=== PATIENT | female | born 1955 | race Caucasian/White ===

== ENCOUNTER → 2016-04-01 | Outpatient (CLI) | payer BC ==
[~2016-04-01] MED LIST: ALBUAER2 INH; CIPR-255 PO; DPKEC500 PO; HYDR-5688 PO; METO1TAB54 PO; MONT1TAB3 PO; VNTHFA/IN INH
--- NOTE | 2016-04-02 12:39 | MAMMOGRAPHY REPORT ---
BILATERAL DIGITAL SCREENING MAMMOGRAM TOMOSYNTHESIS WITH CAD: 04/01/2016 CLINICAL HISTORY: Routine screening. Patient has no complaints. TECHNIQUE: Breast tomosynthesis in addition to standard 2D mammography was performed. Current study was also evaluated with a Computer Aided Detection (CAD) system. COMPARISON: Comparison is made to exams dated: 03/27/2015 mammogram, 03/22/2013 mammogram, 03/23/2014 mammogram, 07/26/2011 mammogram, 07/05/2010 mammogram - [facility], and 07/05/2008. BREAST COMPOSITION: There are scattered areas of fibroglandular density in both breasts. FINDINGS: There are a few stable benign-appearing calcifications in the breasts. No suspicious mass , architectural distortion or cluster of suspicious microcalcifications is seen. IMPRESSION: ACR BI-RADS CATEGORY 1: NEGATIVE There is no mammographic evidence of malignancy. A 1 year screening mammogram is recommended. The p atient will receive written notification of the results. Approximately 10% of breast cancers are not detected with mammography. A negative mammographic repor t should not delay biopsy if a clinically suggestive mass is present. Kristen Rivas M.D. ay/:04/01/2016 16:27:44 Criminal Profiler: Mariluz MOORE(Jaquelin)(Milena), [facility] letter sent: Normal 1/2 BI-RADS Code: ACR BI-RADS Category 1: Negative
== END | disposition home or self-care (01) ==
LOC: C.MAMM 10:14
PROVIDERS: ATTEND Obstetrics & Gynecology
DX: Z12.31 Encounter for screening mammogram for malignant neoplasm of breast (principal)

== ENCOUNTER → 2016-04-17 | Outpatient (CLI) | payer BC ==
--- NOTE | 2016-04-17 13:07 | DIAGNOSTIC IMAGING REPORT ---
SINUS CT CT DOSE: 269.19 mGycm HISTORY: CHRONIC SINUSITIS TECHNIQUE: Multiaxial CT images of the paranasal sinuses were performed and reformatted in the coronal plane without the use of contrast. COMPARISON: Head CT 08/28/2007. FINDINGS: The frontal sinuses and mastoid air cells are clear. Polypoid thickening and opacification of the inferior bilateral ethmoid air cells. There is mild mucosal thickening of the bilateral sphenoid sinuses and maxillary sinuses. No fluid levels within the paranasal sinuses. The nasal septum is essentially midline. The lamina papyracea and orbital floors are intact. Stable 2 cm lucent lesion within the left sphenoid wing. The long-term stability favors a benign lesion. Prior bilateral uncinectomies and partial ethmoidectomies. There is partial opacification of the bilateral maxillary ostia. The left cribriform plate is approximately 2 mm inferior to the right cribriform plate. The ethmoid roofs are essentially symmetric. The visualized brain parenchyma and orbits are unremarkable. IMPRESSION: 1. Postoperative changes within the sinuses as described above. 2. Chronic polypoid thickening and partial opacification of the inferior residual bilateral ethmoid air cells and mid aspect of the nasal cavity. This results in partial opacification of the bilateral maxillary ostia. 3. No fluid levels within the paranasal sinuses. 4. Stable 2 cm lucent lesion within the left sphenoid wing. The long-term stability favors a benign lesion. Electronically signed by: Herberth Bailey M.D. 04/17/2016 1:05 PM Dictated Date/Time: 04/17/2016 12:57 PM
== END | disposition home or self-care (01) ==
LOC: C.CTS 12:38
PROVIDERS: ATTEND Otolaryngology
DX: J32.9 Chronic sinusitis, unspecified (principal); J34.89 Other specified disorders of nose and nasal sinuses; Z98.890 Other specified postprocedural states

== ENCOUNTER → 2016-04-24 | Outpatient (CLI) | payer BC | END | disposition home or self-care (01) | LOC: C.CPL 11:43 | PROVIDERS: ATTEND Otolaryngology | DX: Z01.810 Encounter for preprocedural cardiovascular examination (principal) ==

== ENCOUNTER → 2016-05-09 | Day surgery (SDC) | payer BC ==
[2016-04-30 14:35] VITALS: Ht 160 cm; Wt 74.1 kg
--- NOTE | 2016-05-08 09:53 | History and Physical: Surg Cnt ---
History & Physical Date May 08, 2016. Chief Complaint sinus infections History of Present Illness The patient is a 60 year old female with complaints of chronic sinusitis after several sinus surgeries Additional History Hepatic Disease: No Endocrine Disorder: No Kidney Disease: No Hypertension: No Heart Disease: No Bleeding Tendencies: No Infectious Diseases: No Allergies Coded Allergies: Quinolones (Verified Allergy, Severe, ANAPHYLAXIS BUT CAN TAKE AVELOX W/O RXN, 04/30/16) Cefuroxime (Verified Allergy, Mild, RASH, 04/30/16) Sulfa Antibiotics (Unverified Allergy, Unknown, HIVES AND SOB, 04/30/16) Trovafloxacin (Unverified Allergy, Unknown, HIVES AND SOB, 04/30/16) Home Medications Scheduled PRN Albuterol (Ventolin), 2 PUFFS INH Q4H PRN for SOB/Wheezing Physical Examination Skin: warm/dry, no rash Eyes: normal inspection, EOMI, sclerae normal ENT: normal ENT inspection, pharynx normal Head: normocephalic, atraumatic Neck: supple, no adenopathy, trachea midline Respiratory/Chest: lungs clear, normal breath sounds, no respiratory distress Cardiovascular: regular rate, rhythm, no edema, no murmur Abdomen / GI: normal bowel sounds, non tender Back: normal inspection Extremities: normal inspection, normal range of motion Neurologic/Psych: no motor/sensory deficits, alert, normal reflexes, oriented x 3 Diagnosis chronic sinusitis Plan of Treatment endoscopic sinus surgery
[~2016-05-09] VITALS: Ht 160 cm; Wt 74.1 kg
[~2016-05-09] MED LIST changes: +ATROPINE SULFATE 0.1 MG/ML 5ML SYR IV PRN; -CIPR-255 PO; +CLINDAMYCIN PHOS 150 MG/ML 2 ML VIAL IV SCH; +DEXAMETHASONE SOD INJ 4 MG/ML VIAL ONE; -DPKEC500 PO; +EpHEDrine SULFATE 50MG/5ML SYR ONE; +EpHEDrine SULFATE INJ 50 MG/ML AMP IV PRN; +EpINEphrine INJ 1MG/ML AMP 1 MG/ML AMP ONE; +FENTANYL CITRATE INJ 50 MCG/1 ML 2 ML VIAL IV PRN; +FENTANYL CITRATE INJ 50 MCG/1 ML 2 ML VIAL ONE; +FLUMAZENIL 0.1 MG/1 ML 10 ML VIAL IV PRN; +LABETALOL HCL IV 5 MG/ML 20ML IV PRN; +LACTATED RINGER'S 1000ML 1,000 ML IV SCH; +LIDO 2%/EPINEPHRINE 1:100000 20 ML VIAL INFIL ONE; +LIDOCAINE 4% MPF SOAK 5 ML = 1 DOSE TOP ONE; +LIDOCAINE HCL 2% 2 ML VIAL (20MG/ML) ONE; -METO1TAB54 PO; +MIDAZOLAM HCL 1 MG/ML 2ML VIAL ONE; -MONT1TAB3 PO; +NALOXONE HCL 0.4 MG/1 ML VIAL/CARP IV PRN; +ONDANSETRON INJ 2 MG/ML 2 ML VIAL IV PRN; +ONDANSETRON INJ 2 MG/ML 2 ML VIAL ONE; +OXYCODONE/ACETAMINOPHEN 5-325 TAB PO PRN; +OXYMETAZOLINE HCL 0.05% NA SPR 15 ML BTL SCH; +PROMETHAZINE HCL INJ 12.5 MG in SODIUM CHLORIDE 0.9% 50ML 50 ML IV PRN; +PROMETHAZINE HCL INJ 25 MG/ML 1 ML VIAL ONE; +PROPOFOL IV EMULSION 10 MG/ML 20 ML VIAL IV ONE; +SODIUM CHLORIDE 0.9% 1000ML 1,000 ML IV SCH
--- NOTE | 2016-05-09 08:43 | History & Physical Bridge Note ---
H&P Re-Evaluation Bridge Note: I have examined the patient, reviewed the History & Physical and in the interval since the performance of the History & Physical I have noted the following changes of clinical significance: No changes noted
--- NOTE | 2016-05-09 09:11 | Discharge Instructions-SurgCtr ---
Discharge Instructions Visit Reason for Visit: Chronic Sinusitis Discharge Discharge Diagnosis / Problem: same Discharge Goals Goal(s): Improve disease control Activity Recommendations Activity Limitations: resume your previous activity Anesthesia . Post Anesthesia Instructions: If you have had General Anesthesia or IV Sedation: * Do not drive today. * Resume driving when surgeon permits. * Do not make important decisions or sign legal documents today. * Call surgeon for: 1. Temperature elevations greater than 101 degrees F. 2. Uncontrollable pain. 3. Excessive bleeding. 4. Persistent nausea and vomiting. 5. Medication intolerance (nausea, vomiting or rash). * For nausea and vomiting use only clear liquids such as: tea, soda, bouillon until nausea subsides, then gradually increase diet as tolerated. * If you have any concerns or questions, call your surgeon's office. If physician is unavailable and it is an emergency, call 911 or go to the nearest emergency room. . Instructions / Follow-Up Instructions / Follow-Up ACTIVITY RECOMMENDATIONS: * Being up and around is good, but no strenuous activity, heavy lifting or physical exertion for one week. * Keep your head elevated 30 degrees when lying down or sleeping. * Do not blow your nose for 48 hours, sniff back instead. * Avoid hot showers. OVER THE COUNTER MEDICATIONS: * You may use Tylenol * Avoid aspirin or aspirin containing products, e.g. as they may increase bleeding. SPECIAL CARE INSTRUCTIONS: * Expect to have bloody drainage from your nose and/or down your throat for one to three days. Change drip pad as needed. * Begin irrigating your nose with saline solution today, at least six to ten times per day and sniff back to help remove old clots or crust. * You may experience nasal and facial congestion, pain and pressure, this is normal. * Please call with any significant and/or progressive pain, redness, swelling around the eyes, visual changes, fever of 101.5 degrees F, active bleeding or any problems or concerns. * If active bleeding occurs, spray the nose three times at one minute intervals with Afrin spray and call or cell phone: . If unable to reach the doctor, go to the nearest Emergency Department. Special Diet: * Avoid extremely hot fluids. FOLLOW UP VISIT: Follow-up Visit with Dr. Traylor If not already scheduled, please call to schedule. Diet Recommendations Home Diet: no limitations Pending Studies Studies pending at discharge: no Medical Emergencies . Who to Call and When: Medical Emergencies: If at any time you feel your situation is an emergency, please call 911 immediately. . Non-Emergent Contact Non-Emergency issues call your: Primary Care Provider . . "Provider Documentation" section prepared by Roxanne Traylor. [place] Drug Monitoring Program Search Results: no issues identified
--- NOTE | 2016-05-09 11:06 | OPERATIVE REPORT ---
DATE OF OPERATION: 05/09/2016 PREOPERATIVE DIAGNOSIS: Chronic sinusitis and polyposis. POSTOPERATIVE DIAGNOSIS: Same. PROCEDURE: Right and left frontal, right and left sphenoid, right and left total ethmoid and right and left maxillary sinus antrostomies. SURGEON: Dr. Traylor. ANESTHESIA: General endotracheal. COMPLICATIONS: None. BLOOD LOSS: 50 mL. HISTORY OF PRESENT ILLNESS: A 60-year-old lady with significant recurrent nasal polyposis, chronic sinusitis, difficulty breathing through her nose. She previously had [address] Saba and [address] Walter but continues to have chronic sinusitis and polyps. OPERATION AND FINDINGS: PROCEDURE: The patient brought to operating room and placed in supine position. General endotracheal anesthesia was induced, prepped, draped in usual sterile manner. Nose decongested using cottonoids with topical solution of 4 mL of 4% Xylocaine with 1 mL of epinephrine. Injection of 2% Xylocaine with 1:100,000 strength epinephrine was also used. [employer] device calibrated and used for the entire procedure. The left nasofrontal duct was cannulated with guidewire and dilated using the 6 mm balloon. The guidewire was left in place as a marker. Frontal sinusotomy was performed with the shaver coupled with the BrainLab device shaving out the anterior wall of the agger nasi cell which was still remaining and then the posterior residual wall of the agger nasi cell along with polyps up to the nasofrontal duct, widely opening up the nasofrontal duct but leaving the mucosa there intact. At this point, total ethmoidectomy was performed removing all the anterior and posterior ethmoidal air sessile polyps, finding the sphenoid ostia to be covered with polyps opening up the sphenoid ostia using the shaver coupled with BrainLAB device opening up the sphenoid to the previously shaved ostia and then finding the maxillary sinus to be filled with polyps and also having a missed ostia syndrome, opening up the maxillary ostia by using the seeker to find the missed ostia and then using the shaver to connect the missed primary ostia with the wide antrostomy opening posteriorly. There was polypoid mucosa inside the maxillary sinus which was left in place. In this manner, the frontal, sphenoid, total ethmoid and maxillary sinus antrostomies were completed and a Propel stent was placed. The opposite side frontal, total ethmoid, maxillary and sphenoid sinusotomies were performed in a similar manner again removing multiple polyps. The patient tolerated the procedure well and was taken to recovery area in satisfactory condition. I attest to the content of the Intraoperative Record and any orders documented therein. Any exceptio ns are noted below.
[2016-05-09 11:30] VITALS: TEMP 36.2
--- NOTE | 2016-05-09 11:33 | Anesthesia Progress Nt - [facility] ---
Anesthesia Post Op Note Date & Time May 09, 2016 at 11:33 Vital Signs Pain Intensity: 0 Vital Signs Past 12 Hours Date Time Temp Pulse Resp B/P Pulse Ox O2 Delivery O2 Flow Rate FiO2 05/09/16 11:13 123/81 05/09/16 11:10 75 9 95 05/09/16 11:10 77 9 05/09/16 11:09 79 9 05/09/16 11:09 78 9 94 05/09/16 11:08 122/83 05/09/16 11:06 36.7 95 Room Air 05/09/16 11:04 76 10 95 05/09/16 11:04 76 10 05/09/16 11:03 138/83 05/09/16 10:59 82 8 05/09/16 10:59 82 8 94 05/09/16 10:58 77 12 132/83 94 05/09/16 10:58 77 12 05/09/16 10:53 86 20 136/85 100 05/09/16 10:53 86 20 05/09/16 10:48 79 9 05/09/16 10:48 79 9 134/85 100 05/09/16 10:43 82 13 135/82 100 05/09/16 10:43 82 13 05/09/16 10:38 80 18 138/64 100 05/09/16 10:38 81 18 05/09/16 10:33 79 19 05/09/16 10:33 79 19 129/83 100 05/09/16 10:33 36.4 80 12 133/84 100 Humidified Oxygen 6 Mask 05/09/16 07:58 36.7 80 16 147/93 95 Room Air Notes Mental Status: alert / awake / arousable, participated in evaluation Pt Amnestic to Procedure: Yes Nausea / Vomiting: adequately controlled Pain: adequately controlled Airway Patency, RR, SpO2: stable & adequate BP & HR: stable & adequate Hydration State: stable & adequate Anesthetic Complications: no major complications apparent
--- NOTE | 2016-05-09 12:14 | Discharge Instructions-SurgCtr ---
Discharge Instructions Visit Reason for Visit: Chronic Sinusitis Discharge Discharge Diagnosis / Problem: same Discharge Goals Goal(s): Improve function Activity Recommendations Activity Limitations: resume your previous activity Lifting Limitations: no more than 5 pounds, gradually increase as tolerated Exercise/Sports Limitations: as tolerated excuse from work until next Friday, return to work next Anesthesia . Post Anesthesia Instructions: If you have had General Anesthesia or IV Sedation: * Do not drive today. * Resume driving when surgeon permits. * Do not make important decisions or sign legal documents today. * Call surgeon for: 1. Temperature elevations greater than 101 degrees F. 2. Uncontrollable pain. 3. Excessive bleeding. 4. Persistent nausea and vomiting. 5. Medication intolerance (nausea, vomiting or rash). * For nausea and vomiting use only clear liquids such as: tea, soda, bouillon until nausea subsides, then gradually increase diet as tolerated. * If you have any concerns or questions, call your surgeon's office. If physician is unavailable and it is an emergency, call 911 or go to the nearest emergency room. . Instructions / Follow-Up Instructions / Follow-Up ACTIVITY RECOMMENDATIONS: * Being up and around is good, but no strenuous activity, heavy lifting or physical exertion for one week. * Keep your head elevated 30 degrees when lying down or sleeping. * Do not blow your nose for 48 hours, sniff back instead. * Avoid hot showers. OVER THE COUNTER MEDICATIONS: * You may use Tylenol * Avoid aspirin or aspirin containing products, e.g. as they may increase bleeding. SPECIAL CARE INSTRUCTIONS: * Expect to have bloody drainage from your nose and/or down your throat for one to three days. Change drip pad as needed. * Begin irrigating your nose with saline solution today, at least six to ten times per day and sniff back to help remove old clots or crust. * You may experience nasal and facial congestion, pain and pressure, this is normal. * Please call with any significant and/or progressive pain, redness, swelling around the eyes, visual changes, fever of 101.5 degrees F, active bleeding or any problems or concerns. * If active bleeding occurs, spray the nose three times at one minute intervals with Afrin spray and call or cell phone: . If unable to reach the doctor, go to the nearest Emergency Department. Special Diet: * Avoid extremely hot fluids. FOLLOW UP VISIT: Follow-up Visit with Dr. Traylor If not already scheduled, please call to schedule. Diet Recommendations Home Diet: no limitations Procedures Procedures Performed: Endoscopic Sinus Surgery, Right & Left Frontal, Right & Left Maxillary, Right & Left Sphenoid, Right & Left Total Ethmoids, With Brainlab Navigation Pending Studies Studies pending at discharge: no Medical Emergencies . Who to Call and When: Medical Emergencies: If at any time you feel your situation is an emergency, please call 911 immediately. . Non-Emergent Contact Non-Emergency issues call your: Primary Care Provider . . "Provider Documentation" section prepared by Roxanne Traylor. [place] Drug Monitoring Program Search Results: no issues identified
[2016-05-09 12:20] VITALS: BP 139/90; PULSE 69; O2SAT 98
== END | disposition home or self-care (01) ==
LOC: X.SURG 07:46
PROVIDERS: ATTEND Otolaryngology
DX: J32.9 Chronic sinusitis, unspecified (principal); J33.9 Nasal polyp, unspecified; Z88.1 Allergy status to other antibiotic agents; Z88.2 Allergy status to sulfonamides; Z88.8 Allergy status to other drugs, medicaments and biological substances

== ENCOUNTER 2016-05-17 10:06 | Emergency (ER) | payer BC ==
[~2016-05-17] VITALS: Ht 160 cm; Wt 73.2 kg
[~2016-05-17 10:06] MED LIST changes: -ATROPINE SULFATE 0.1 MG/ML 5ML SYR IV PRN; -CLINDAMYCIN PHOS 150 MG/ML 2 ML VIAL IV SCH; -DEXAMETHASONE SOD INJ 4 MG/ML VIAL ONE; -EpHEDrine SULFATE 50MG/5ML SYR ONE; -EpHEDrine SULFATE INJ 50 MG/ML AMP IV PRN; -EpINEphrine INJ 1MG/ML AMP 1 MG/ML AMP ONE; -FENTANYL CITRATE INJ 50 MCG/1 ML 2 ML VIAL IV PRN; -FENTANYL CITRATE INJ 50 MCG/1 ML 2 ML VIAL ONE; -FLUMAZENIL 0.1 MG/1 ML 10 ML VIAL IV PRN; -LABETALOL HCL IV 5 MG/ML 20ML IV PRN; -LACTATED RINGER'S 1000ML 1,000 ML IV SCH; -LIDO 2%/EPINEPHRINE 1:100000 20 ML VIAL INFIL ONE; -LIDOCAINE 4% MPF SOAK 5 ML = 1 DOSE TOP ONE; -LIDOCAINE HCL 2% 2 ML VIAL (20MG/ML) ONE; -MIDAZOLAM HCL 1 MG/ML 2ML VIAL ONE; -NALOXONE HCL 0.4 MG/1 ML VIAL/CARP IV PRN; -ONDANSETRON INJ 2 MG/ML 2 ML VIAL IV PRN; -ONDANSETRON INJ 2 MG/ML 2 ML VIAL ONE; -OXYCODONE/ACETAMINOPHEN 5-325 TAB PO PRN; -OXYMETAZOLINE HCL 0.05% NA SPR 15 ML BTL SCH; -PROMETHAZINE HCL INJ 12.5 MG in SODIUM CHLORIDE 0.9% 50ML 50 ML IV PRN; -PROMETHAZINE HCL INJ 25 MG/ML 1 ML VIAL ONE; -PROPOFOL IV EMULSION 10 MG/ML 20 ML VIAL IV ONE; -SODIUM CHLORIDE 0.9% 1000ML 1,000 ML IV SCH; -VNTHFA/IN INH
[2016-05-17 10:11] VITALS: TEMP 36.5; Ht 160 cm; Wt 73.2 kg
[2016-05-17] MEDS ORDERED: PROCHLORPERAZINE 5 MG/ML 2 ML VIAL IV STA (11:05)
[2016-05-17] MEDS ORDERED: SODIUM CHLORIDE 0.9% 1000ML 1,000 ML IV STA (11:05)
[2016-05-17] MEDS ORDERED: DiphenhydrAMINE HCL 50 MG/ML VIAL IV STA (11:05)
[2016-05-17] MEDS ORDERED: KETOROLAC TROMETHAMINE 30 MG/ML VIAL IV STA (11:05)
[2016-05-17 11:12] LABS: BASO % 0.6 %; BASO ABS # 0.04 K/uL (0-0.2); COMPLETE YES; EOS % 4.4 %; HEMATOCRIT 40.2 % (37-47); LYMPH % 29.1 %; LYMPH ABS # 1.92 K/uL (1.2-3.4); MEAN CELL VOLUME 87.2 fL (80-100); MEAN CORPUSCULAR HEMOGLOBIN 30.6 pg (25-34); MEAN CORPUSCULAR HGB CONC 35.1 g/dl (32-36); MEAN PLATELET VOLUME 9.7 fL (7.4-10.4); MONO % 5.2 %; NEUT % 60.7 %; PLATELET COUNT 322 K/uL (130-400); RED BLOOD COUNT 4.61 M/uL (4.2-5.4)
--- NOTE | 2016-05-17 11:14 | EMERGENCY ROOM VISIT NOTE ---
History Report prepared by Lonnie: Maricarmen Shah Under the Supervision of: Dr. Frankie Estes M.D. First contact with patient: 10:50 Chief Complaint: HYPERTENSION Stated Complaint: HIGH BP History of Present Illness The patient is a 60 year old female who presents to the Emergency Room with complaints of a persistent headache that began prior to arrival. She currently rates her discomfort as an 8/10 in severity. The patient states that she had sinus surgery on Friday and states that Dr. Traylor noticed a blood clot and tried to remove the clot. She states that the stent in her sinus moved, so they did not remove the clot. The patient states that she was instructed to return to Dr. Traylor's office next week for further evaluation. She states that she is still irrigating her sinuses. Today she notes the headache and describes it as a throbbing pain. She additionally associates neck pain, right arm numbness, nausea, and an increase in her blood pressure. The patient denies ever having pain like this in the past. Source of History: patient Onset: prior to arrival Position: head Symptom Intensity: 8/10 Quality: other (throbbing) Timing: other (persistent) Associated Symptoms: + nausea, + neck pain, + numbness (right arm) Note: Associated Symptoms: increase in blood pressure. Review of Systems See HPI for pertinent positives & negatives. A total of 10 systems reviewed and were otherwise negative. Past Medical & Surgical Medical Problems: (1) Asthma Surgical Problems: (1) H/O sinus surgery Family History Diabetes mellitus Social History Smoking Status: Never Smoker Alcohol Use: none Drug Use: none Marital Status: Occupation Status: employed Current/Historical Medications Scheduled Albuterol Hfa (Ventolin Hfa), 2-4 PUFFS INH Q6H Scheduled PRN Hydrocodone/Acetaminophen 5MG/325MG ([place] 5MG/325MG), 2 TABLETS PO Q4 PRN for Pain Allergies Coded Allergies: Quinolones (Verified Allergy, Severe, ANAPHYLAXIS BUT CAN TAKE AVELOX W/O RXN, 05/17/16) Cefuroxime (Verified Allergy, Mild, RASH, 05/17/16) Sulfa Antibiotics (Verified Allergy, Unknown, HIVES AND SOB, 05/17/16) Trovafloxacin (Verified Allergy, Unknown, HIVES AND SOB, 05/17/16) Physical Exam Vital Signs Date Time Temp Pulse Resp B/P Pulse Ox O2 Delivery O2 Flow Rate FiO2 05/17/16 14:03 60 16 135/80 96 05/17/16 13:40 67 16 147/84 97 Room Air 05/17/16 12:41 64 16 146/86 94 Room Air 05/17/16 11:26 82 16 104/92 96 Room Air 05/17/16 11:24 97 Room Air 05/17/16 10:11 36.5 76 18 170/106 99 Room Air Physical Exam GENERAL: Patient is a healthy-appearing well-nourished HEAD: Normocephalic atraumatic EYES: Ocular movements intact pupils equal and react to light OROPHARYNX mucous membranes are moist no exudates present no erythema or edema present NECK: No evidence of meningitis or encephalitis on exam. Supple no nuchal rigidity CHEST: Good equal expansion LUNGS: Clear and equal to auscultation CARDIAC: Normal S1 and S2 ABDOMEN: Soft nontender no guarding BACK: No CVA tenderness EXTREMITIES: No pain upon palpation normal muscle strength in all groups no clubbing cyanosis or edema NEURO: Patient is following commands is answering questions appropriately. Alert and oriented x3 Cranial Nerves 2-12 grossly intact Medical Decision & Procedures ER Provider Diagnostic Interpretation: CT results as stated below per my review and radiologist interpretation: CT SINUSES-MAXILLOFACIAL W/O CLINICAL HISTORY: Severe headache. History of sinus surgery. COMPARISON STUDY: 04/17/2016 TECHNIQUE: CT scan of the paranasal sinuses was performed in the axial plane. Coronal reconstructed images were obtained and reviewed. CT DOSE: 305.90 mGycm FINDINGS: There is near complete opacification of the left maxillary sinus. There is moderate mucosal thickening within the right maxillary sinus. 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 There is sphenoid sinus mucosal thickening. Frontal sinuses are clear. The mastoid sinuses are well aerated. There are postsurgical changes of functional endoscopic surgery. The created nasomaxillary apertures appear patent. The surgically created sphenoethmoidal recesses are patent. The surgically created frontal recesses are patent. There is supraorbital pneumatization above the anterior ethmoidal notches bilaterally IMPRESSION: Postsurgical changes. Near complete opacification of the left maxilla sinus and moderate mucosal thickening within the right maxillary sinus. Electronically signed by: Zi Moreno M.D. 05/17/2016 12:16 PM Dictated Date/Time: 05/17/2016 12:[address] HEAD WITHOUT CONTRAST (CT) CLINICAL HISTORY: Severe headache COMPARISON STUDY: 08/28/2007 TECHNIQUE: Axial CT of the brain is performed from the vertex to the skull base. IV contrast was not administered for this examination. CT DOSE: 823.94 mGycm FINDINGS: No intra or extra-axial mass lesions are visualized. There is no CT evidence of acute cortical infarction. There is no evidence of midline shift. There is no acute hemorrhage. No calvarial fractures are visualized. There are minor white matter hypodensities likely on a small vessel basis. There is no evidence of pathologic ventricular dilatation. There are postsurgical changes present. There is complete opacification of the left maxillary sinus. There is moderate mucosal thickening within the right maxillary sinus. There is sphenoid sinus mucosal thickening. There are postsurgical changes of a prior partial ethmoidectomy. IMPRESSION: 1. Inflammatory changes within the paranasal sinuses 2. No acute intracranial findings Electronically signed by: Zi Moreno M.D. 05/17/2016 12:03 PM Dictated Date/Time: 05/17/2016 12:02 PM Laboratory Results 05/17/16 10:24 Red Blood Count 4.61, Mean Corpuscular Volume 87.2, Mean Corpuscular Hemoglobin 30.6, Mean Corpuscular Hemoglobin Concent 35.1, Mean Platelet Volume 9.7, Neutrophils (%) (Auto) 60.7, Lymphocytes (%) (Auto) 29.1, Monocytes (%) (Auto) 5.2, Eosinophils (%) (Auto) 4.4, Basophils (%) (Auto) 0.6, Neutrophils # (Auto) 4.01, Lymphocytes # (Auto) 1.92, Monocytes # (Auto) 0.34, Eosinophils # (Auto) 0.29, Basophils # (Auto) 0.04 05/17/16 10:24 Test 05/17/16 10:24 05/17/16 11:20 White Blood Count 6.60 K/uL (4.8-10.8) Red Blood Count 4.61 M/uL (4.2-5.4) Hemoglobin 14.1 g/dL (12.0-16.0) Hematocrit 40.2 % (37-47) Mean Corpuscular Volume 87.2 fL (80-100) Mean Corpuscular Hemoglobin 30.6 pg (25-34) Mean Corpuscular Hemoglobin Concent 35.1 g/dl (32-36) Platelet Count 322 K/uL (130-400) Mean Platelet Volume 9.7 fL (7.4-10.4) Neutrophils (%) (Auto) 60.7 % Lymphocytes (%) (Auto) 29.1 % Monocytes (%) (Auto) 5.2 % Eosinophils (%) (Auto) 4.4 % Basophils (%) (Auto) 0.6 % Neutrophils # (Auto) 4.01 K/uL (1.4-6.5) Lymphocytes # (Auto) 1.92 K/uL (1.2-3.4) Monocytes # (Auto) 0.34 K/uL (0.11-0.59) Eosinophils # (Auto) 0.29 K/uL (0-0.5) Basophils # (Auto) 0.04 K/uL (0-0.2) RDW Standard Deviation 41.1 fL (36.4-46.3) RDW Coefficient of Variation 12.8 % (11.5-14.5) Immature Granulocyte % (Auto) 0.0 % Immature Granulocyte # (Auto) 0.00 K/uL (0.00-0.02) Anion Gap 8.0 mmol/L (3-11) Est Creatinine Clear Calc Drug Dose 85.4 ml/min Estimated GFR () 111.0 Estimated GFR (Non- 95.7 BUN/Creatinine Ratio 24.3 (10-20) Calcium Level 9.9 mg/dl (8.5-10.1) Thyroid Stimulating Hormone (TSH) 1.500 uIu/ml (0.300-4.500) Influenza Type A (RT-PCR) Neg for Influ A (NEG) Influenza Type A Antigen Neg for Influ A (NEG) Influenza Type B Antigen Neg for Influ B (NEG) Influenza Type B (RT-PCR) Neg for Influ B (NEG) Medications Administered Medications (Trade) Dose Ordered Sig/Mary Route Start Time Stop Time Status Last Admin Dose Admin Sodium Chloride (Nss 1000ml) 1,000 ml @ 999 mls/hr Q1H1M STAT IV 05/17/16 11:05 05/17/16 12:05 DC 05/17/16 11:19 999 MLS/HR Ketorolac Tromethamine (Toradol Inj) 30 mg NOW STAT IV 05/17/16 11:05 05/17/16 11:07 DC 05/17/16 11:21 30 MG Prochlorperazine Edisylate (Compazine Inj) 10 mg NOW STAT IV 05/17/16 11:05 05/17/16 11:07 DC 05/17/16 11:21 10 MG Diphenhydramine HCl (Benadryl Inj) 50 mg NOW STAT IV 05/17/16 11:05 05/17/16 11:07 DC 05/17/16 11:22 50 MG ECG Indication: other (hypertension) Rate (beats per minute): 73 Rhythm: normal sinus Findings: no acute ischemic change, no ectopy ED Course 1052: Past medical records reviewed. The patient was evaluated in room A12B. A complete history and physical examination was performed. 1105: Ordered Benadryl Inj 50 mg IV, Compazine Inj 10 mg IV, Toradol Inj 30 mg IV, Sodium Chloride 1000 ml @ 999 mls/hr IV. 1234: I discussed the patients case with Dr. Traylor, ENT. He is going to come see the patient. 1255: Dr. Traylor arrived in the emergency department. He states that he will tell the patient that she can follow up this week in the office. 1330: I reevaluated the patient and she is doing well. I discussed the exam findings with her and I discussed the treatment plan. She verbalized complete understanding and agreement. She is ready to go home. Medical Decision Differential diagnosis: Etiologies such as migraine headache, meningitis, sinusitis, CO exposure, ICH, SAH, infection, tumor, headache, sinus thrombosis, arterial dissection, as well as others were entertained. This is a 61-year-old female who presents emergency department complaining of headache along with multiple general other complaints. The patient has no evidence of meningitis encephalitis on examination. In addition she does not have an elevation in her white blood count has a normal renal profile normal liver profile. Based on the patient's complaint she was sent for CAT scan of the head as well as maxillofacial area. This did not show any evidence of acute process. The patient was also independently evaluated by Dr. Aceves who agreed that the patient can be safely discharged home for follow-up in the office. An IV was established, the patient given normal saline bolus, Compazine , Benadryl. Repeat examination revealed improvement patient's symptoms. Consults Time Called: 1231 Consulting Physician: Dr. Traylor, ENT Returned Call: 1234 I discussed the patients case with Dr. Traylor, ENT. He is going to come see the patient. Impression Primary Impression: Sinusitis Scribe Attestation The scribe's documentation has been prepared under my direction and personally reviewed by me in its entirety. I confirm that the note above accurately reflects all work, treatment, procedures, and medical decision making performed by me. Departure Information Dispostion Home / Self-Care Referrals Edin Merlos M.D. (PCP) Forms HOME CARE DOCUMENTATION FORM, IMPORTANT VISIT INFORMATION, WORK / SCHOOL INSTRUCTIONS Patient Instructions Headaches Sinus, My [facility], Sinus Probs, Sinuses Additional Instructions Follow up with DR Traylor's office You have been examined and treated today on an emergency basis only. This is not a substitute for, or an effort to provide, complete comprehensive medical care. It is impossible to recognize and treat all injuries or illnesses in a single emergency department visit. It is therefore important that you follow up closely with Dr Merlos. Call as soon as possible for an appointment. Thank you for your time and consideration. I look forward to speaking with you again soon. Please don't hesitate to call us if you have any questions. Problem Qualifiers Primary Impression: Sinusitis Sinusitis location: frontal Chronicity: subacute Qualified Codes: J01.10 - Acute frontal sinusitis, unspecified
[2016-05-17 11:19] LABS: BUN/CREATININE RATIO 24.3 (10-20); CALCIUM 9.9 mg/dl (8.5-10.1); CREATININE 0.68 mg/dl (0.60-1.20); POTASSIUM 3.9 mmol/L (3.5-5.1)
[2016-05-17 11:24] VITALS: O2SAT 97
[2016-05-17 11:30] LABS: THYROID STIMULATING HORMONE 1.5 uIu/ml (0.300-4.500)
--- NOTE | 2016-05-17 12:05 | DIAGNOSTIC IMAGING REPORT ---
CT HEAD WITHOUT CONTRAST (CT) CLINICAL HISTORY: Severe headache COMPARISON STUDY: 08/28/2007 TECHNIQUE: Axial CT of the brain is performed from the vertex to the skull base. IV contrast was not administered for this examination. CT DOSE: 823.94 mGycm FINDINGS: No intra or extra-axial mass lesions are visualized. There is no CT evidence of acute cortical infarction. There is no evidence of midline shift. There is no acute hemorrhage. No calvarial fractures are visualized. There are minor white matter hypodensities likely on a small vessel basis. There is no evidence of pathologic ventricular dilatation. There are postsurgical changes present. There is complete opacification of the left maxillary sinus. There is moderate mucosal thickening within the right maxillary sinus. There is sphenoid sinus mucosal thickening. There are postsurgical changes of a prior partial ethmoidectomy. IMPRESSION: 1. Inflammatory changes within the paranasal sinuses 2. No acute intracranial findings Electronically signed by: Zi Moreno M.D. 05/17/2016 12:03 PM Dictated Date/Time: 05/17/2016 12:02 PM
--- NOTE | 2016-05-17 12:17 | DIAGNOSTIC IMAGING REPORT ---
CT SINUSES-MAXILLOFACIAL W/O CLINICAL HISTORY: Severe headache. History of sinus surgery. COMPARISON STUDY: 04/17/2016 TECHNIQUE: CT scan of the paranasal sinuses was performed in the axial plane. Coronal reconstructed images were obtained and reviewed. CT DOSE: 305.90 mGycm FINDINGS: There is near complete opacification of the left maxillary sinus. There is moderate mucosal thickening within the right maxillary sinus. 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 There is sphenoid sinus mucosal thickening. Frontal sinuses are clear. The mastoid sinuses are well aerated. There are postsurgical changes of functional endoscopic surgery. The created nasomaxillary apertures appear patent. The surgically created sphenoethmoidal recesses are patent. The surgically created frontal recesses are patent. There is supraorbital pneumatization above the anterior ethmoidal notches bilaterally IMPRESSION: Postsurgical changes. Near complete opacification of the left maxilla sinus and moderate mucosal thickening within the right maxillary sinus. Electronically signed by: Zi Moreno M.D. 05/17/2016 12:16 PM Dictated Date/Time: 05/17/2016 12:13 PM
[2016-05-17] MEDS ORDERED: VNTHFA/IN INH (12:29)
[2016-05-17 13:17] LABS: INFLUENZA A PCR Neg for Influ A (NEG); INFLUENZA B PCR Neg for Influ B (NEG)
[2016-05-17 14:03] VITALS: BP 135/80; PULSE 60; O2SAT 96
== END 2016-05-17 14:05 | disposition home or self-care (01) ==
LOC: C.EDB 10:08 → C.EDA 14:05
DX: J01.10 Acute frontal sinusitis, unspecified (principal); Z83.3 Family history of diabetes mellitus

== ENCOUNTER → 2016-05-31 | Outpatient (CLI) | payer BC ==
[~2016-05-31] MED LIST changes: -ALBUAER2 INH; +VNTHFA/IN INH
== END | disposition home or self-care (01) ==
LOC: C.PAPS 10:22
PROVIDERS: ATTEND Obstetrics & Gynecology
DX: Z01.419 Encounter for gynecological examination (general) (routine) without abnormal findings (principal)

== ENCOUNTER → 2017-04-07 | Outpatient (CLI) | payer OTHER ==
[~2017-04-07] MED LIST changes: -HYDR-5688 PO
--- NOTE | 2017-04-07 14:48 | MAMMOGRAPHY REPORT ---
BILATERAL DIGITAL SCREENING MAMMOGRAM TOMOSYNTHESIS WITH CAD: 04/07/2017 CLINICAL HISTORY: Routine screening. Patient has no complaints. TECHNIQUE: Breast tomosynthesis in addition to standard 2D mammography was performed. Current study was also evaluated with a Computer Aided Detection (CAD) system. COMPARISON: Comparison is made to exams dated: 04/01/2016 mammogram, 03/27/2015 mammogram, 03/23/2014 ma mmogram, 03/22/2013 mammogram, 07/26/2011 mammogram, and 07/05/2010 mammogram - [facility] nter. BREAST COMPOSITION: There are scattered areas of fibroglandular density in both breasts. FINDINGS: The parenchymal pattern is unchanged. No developing mass, architectural distortion or clus ter of suspicious microcalcifications is seen in either breast. IMPRESSION: ACR BI-RADS CATEGORY 2: BENIGN There is no mammographic evidence of malignancy. A 1 year screening mammogram is recommended. The pa tient will receive written notification of the results. Approximately 10% of breast cancers are not detected with mammography. A negative mammographic report should not delay biopsy if a clinically suggestive mass is present. Kristen Rivas M.D. ay/:04/07/2017 13:47:30 Senior Speech Pathologist: Katie Ramirez, [facility] letter sent: Normal 1/2 BI-RADS Code: ACR BI-RADS Category 2: Benign
== END | disposition home or self-care (01) ==
LOC: C.MAMM 10:15
PROVIDERS: ATTEND Obstetrics & Gynecology
DX: Z12.31 Encounter for screening mammogram for malignant neoplasm of breast (principal)